=== PATIENT | female | born 1945 | race Caucasian/White ===

== ENCOUNTER 2018-11-13 01:40 | Emergency (ER) | payer MEDICARE ==
[~2018-11-13] VITALS: Ht 165.1 cm; Wt 88.5 kg
[2018-11-13] MEDS ORDERED: aspirin 81mg tab.chew PO ONE (01:55)
[2018-11-13 02:22] LABS: BASOPHILS # (AUTO) 0.1 X10'3 (0-0.2); BASOPHILS % (AUTO) 0.9 % (0-1); EOSINOPHILS # (AUTO) 0.1 X10'3 (0-0.9); EOSINOPHILS % (AUTO) 1.5 % (0-6); HEMATOCRIT 41.5 % (35.0-45.0); HEMOGLOBIN 13.8 g/dl (12.0-16.0); LYMPHOCYTES % (AUTO) 35.3 % (21-51); MEAN CORPUSCULAR HEMOGLOBIN 32.3 PG (27.0-31.0); MEAN CORPUSCULAR HGB CONC 33.3 % (33.0-36.5); MEAN CORPUSCULAR VOLUME 97.1 FL (78-98); MEAN PLATELET VOLUME 8.4 FL (7.4-10.4); MONOCYTES # (AUTO) 0.8 X10'3 (0-0.9); MONOCYTES % (AUTO) 9.2 % (2-12); NEUTROPHILS # (AUTO) 4.5 X10'3 (1.8-7.7); NEUTROPHILS % (AUTO) 53.1 % (42-75); PLATELET COUNT 330 X10'3 (140-440); RED BLOOD COUNT 4.28 X10'6 (4.20-5.60); RED CELL DISTRIBUTION WIDTH 13.4 % (11.5-14.5); WHITE BLOOD COUNT 8.5 X10'3 (4.5-11.0)
[2018-11-13 02:29] LABS: ALANINE AMINOTRANSFERASE 30 U/L (12-78); ALBUMIN 3.4 G/DL (3.4-5.0); ALBUMIN/GLOBULIN RATIO 0.8 (1.1-1.5); ALKALINE PHOSPHATASE 101 IU/L (46-116); ANION GAP 12 (8-16); ASPARTATE AMINO TRANSFERASE 24 U/L (10-37); BILIRUBIN,TOTAL 0.5 MG/DL (0.1-1.0); BLOOD UREA NITROGEN 19 MG/DL (7-18); BUN/CREATININE RATIO 18.4 (6.6-38.0); CALCIUM 8.7 MG/DL (8.5-10.1); CHLORIDE 103 MMOL/L (99-107); CREATININE 1.03 MG/DL (0.40-0.90); GLUCOSE 117 MG/DL (70-104); POTASSIUM 3.6 MMOL/L (3.5-5.1); SODIUM 140 MMOL/L (135-145); TOTAL CARBON DIOXIDE 25.1 MMOL/L (24-32); TOTAL PROTEIN 7.7 G/DL (6.4-8.2); eGFR 53 ML/MIN
[2018-11-13 05:35] VITALS: BP 138/84
== END 2018-11-13 05:37 | disposition home or self-care (01) ==
LOC: ER 01:41
DX: R00.2 Palpitations (principal); R00.0 Tachycardia, unspecified; I10 Essential (primary) hypertension; Z91.013 Allergy to seafood; Z91.018 Allergy to other foods; Z88.0 Allergy status to penicillin
CPT/HCPCS: 36415; 71045; 80053; 83735; 83880; 84484; 85025; 93005; 99284

== ENCOUNTER 2019-08-10 19:48 | Inpatient (IN) | payer MEDICARE, BC ==
[~2019-08-10] VITALS: Ht 165.1 cm; Wt 84.5 kg
[2019-08-10] MEDS ORDERED: ondansetron/PF 4mg/2ml inj IV ONE (20:00)
[2019-08-10] MEDS ORDERED: morphine 4 MG/ML inj SYRINge IV ONE (20:00)
[2019-08-10 20:25] LABS: BASOPHILS # (AUTO) 0.1 X10'3 (0-0.2); BASOPHILS % (AUTO) 0.5 % (0-1); EOSINOPHILS # (AUTO) 0.1 X10'3 (0-0.9); HEMATOCRIT 42.2 % (35.0-45.0); HEMOGLOBIN 14.3 g/dl (12.0-16.0); LYMPHOCYTES # (AUTO) 2.1 X10'3 (1.1-4.8); LYMPHOCYTES % (AUTO) 20.2 % (21-51); MEAN CORPUSCULAR HEMOGLOBIN 32.7 PG (27.0-31.0); MEAN CORPUSCULAR VOLUME 96.3 FL (78-98); MONOCYTES # (AUTO) 0.8 X10'3 (0-0.9); MONOCYTES % (AUTO) 8.2 % (2-12); NEUTROPHILS # (AUTO) 7.1 X10'3 (1.8-7.7); NEUTROPHILS % (AUTO) 70.1 % (42-75); PLATELET COUNT 292 X10'3 (140-440); RED BLOOD COUNT 4.38 X10'6 (4.20-5.60); RED CELL DISTRIBUTION WIDTH 13.7 % (11.5-14.5); WHITE BLOOD COUNT 10.2 X10'3 (4.5-11.0)
[2019-08-10 20:34] LABS: ALANINE AMINOTRANSFERASE 30 U/L (12-78); ALBUMIN 3.4 G/DL (3.4-5.0); ALBUMIN/GLOBULIN RATIO 0.8 (1.1-1.5); ALKALINE PHOSPHATASE 89 IU/L (46-116); ANION GAP 6 (8-16); ASPARTATE AMINO TRANSFERASE 23 U/L (10-37); BILIRUBIN,TOTAL 0.6 MG/DL (0.1-1.0); BLOOD UREA NITROGEN 22 MG/DL (7-18); BUN/CREATININE RATIO 22.2 (6.6-38.0); CALCIUM 8.5 MG/DL (8.5-10.1); CHLORIDE 106 MMOL/L (99-107); CREATININE 0.99 MG/DL (0.40-0.90); GLUCOSE 111 MG/DL (70-104); PARTIAL THROMBOPLASTIN TIME 26 SECONDS (22-32); POTASSIUM 4.4 MMOL/L (3.5-5.1); SODIUM 141 MMOL/L (135-145); TOTAL CARBON DIOXIDE 28.6 MMOL/L (24-32); TOTAL PROTEIN 7.6 G/DL (6.4-8.2); eGFR 55 ML/MIN
--- NOTE | 2019-08-10 20:59 | NUR ---
VERBAL ORDER FROM MD BOWENS FOR GRUBBS CATH DUE TO PATIENT HIP FX.
[2019-08-10] MEDS ORDERED: magnesium 4gm in 100ml NS 100 ML IV PRN (21:15)
[2019-08-10] MEDS ORDERED: magnesium Cl slow-release 64mg tablet PO PRN (21:15)
[2019-08-10] MEDS ORDERED: potassium Cl 20 mEq SR tablet PO PRN ×2 (21:15)
[2019-08-10] MEDS ORDERED: mag hydrox/Alum hydrox/simeth 30ml oral suspension PO PRN (21:15)
[2019-08-10] MEDS ORDERED: acetaminophen 325mg tablet PO PRN ×2 (21:15)
[2019-08-10] MEDS ORDERED: potassium CL 10mEq/100ml bag 100 ML IV PRN ×2 (21:15)
[2019-08-10] MEDS ORDERED: magnesium 2GM in 50ml NS 50 ML IV PRN (21:15)
[2019-08-10] MEDS ORDERED: SOTA80TA PO (21:24)
[2019-08-10] MEDS ORDERED: DOXY20TA3 PO (21:24)
[2019-08-10] MEDS ORDERED: CHOL10002 PO (21:24)
[2019-08-10] MEDS ORDERED: VIT1CAPS9 PO (21:24)
[2019-08-10] MEDS ORDERED: FAMO20TA8 PO (21:24)
[2019-08-10] MEDS ORDERED: LOSA25TA96 PO (21:24)
[2019-08-10] MEDS ORDERED: BIO TEARS (21:30)
[2019-08-10] MEDS: morphine 2 MG/ML inj. syringe IV PRN (21:41)
[2019-08-10] MEDS: heparin, porcine 5000 units/ml vial SQ SCH (23:36)
[2019-08-10] MEDS: normal saline 1000ml 1,000 ML IV SCH (23:37)
[2019-08-10] MEDS ORDERED: SOTA80TA73 PO ×2 (23:58)
[2019-08-11] VITALS (21 sets, daily range): BP systolic 93–138; BP diastolic 49–84
[2019-08-11] MEDS ORDERED: sotalol 80mg tablet PO ONE (00:15)
[2019-08-11 05:35] LABS: BASOPHILS % (AUTO) 0.2 % (0-1); EOSINOPHILS % (AUTO) 0.1 % (0-6); HEMATOCRIT 38.9 % (35.0-45.0); HEMOGLOBIN 12.9 g/dl (12.0-16.0); LYMPHOCYTES # (AUTO) 0.9 X10'3 (1.1-4.8); LYMPHOCYTES % (AUTO) 6.3 % (21-51); MEAN CORPUSCULAR HEMOGLOBIN 32.5 PG (27.0-31.0); MEAN CORPUSCULAR HGB CONC 33.3 g/dL (33.0-36.5); MEAN CORPUSCULAR VOLUME 97.4 FL (78-98); MEAN PLATELET VOLUME 8.3 FL (7.4-10.4); MONOCYTES # (AUTO) 0.7 X10'3 (0-0.9); MONOCYTES % (AUTO) 5.3 % (2-12); NEUTROPHILS # (AUTO) 11.9 X10'3 (1.8-7.7); NEUTROPHILS % (AUTO) 88.1 % (42-75); PLATELET COUNT 247 X10'3 (140-440); RED BLOOD COUNT 3.99 X10'6 (4.20-5.60); RED CELL DISTRIBUTION WIDTH 13.9 % (11.5-14.5); WHITE BLOOD COUNT 13.5 X10'3 (4.5-11.0)
[2019-08-11] MEDS: morphine 2 MG/ML inj. syringe IV PRN ×3 (05:52→23:19)
[2019-08-11 06:15] LABS: ALBUMIN 2.9 G/DL (3.4-5.0); ANION GAP 9 (8-16); BLOOD UREA NITROGEN 18 MG/DL (7-18); BUN/CREATININE RATIO 18.8 (6.6-38.0); CALCIUM 9.1 MG/DL (8.5-10.1); CHLORIDE 108 MMOL/L (99-107); CREATININE 0.96 MG/DL (0.40-0.90); GLUCOSE 136 MG/DL (70-104); POTASSIUM 4.2 MMOL/L (3.5-5.1); SODIUM 143 MMOL/L (135-145); TOTAL CARBON DIOXIDE 26.2 MMOL/L (24-32); eGFR 57 ML/MIN
--- NOTE | 2019-08-11 06:35 | NUR ---
Received report from Afshan RN
[2019-08-11] MEDS: normal saline 1000ml 1,000 ML IV SCH ×2 (07:13→19:46)
[2019-08-11] MEDS: sotalol 40mg tablet PO SCH (08:00)
[2019-08-11] MEDS: K and/or MAG REPLACEMENT MC SCH (08:00)
[2019-08-11] MEDS ORDERED: clindamycin 600mg/D5W 50ml 50 ML IV ONE (13:00)
[2019-08-11] MEDS ORDERED: tetracaine 1% (10mg/ml) pres. free inj. ONE (13:51)
[2019-08-11] MEDS ORDERED: midazolam 2 mg/2 ml injection ONE ×2 (13:54)
[2019-08-11] MEDS ORDERED: fentaNYL/PF 50MCG/1 ML 2ML syringe ONE (13:54)
[2019-08-11] MEDS ORDERED: propofol inj 20 ML IV ONE (13:58)
[2019-08-11] MEDS ORDERED: ePHEDrine 50MG/ML INJ. ONE (14:42)
[2019-08-11] MEDS ORDERED: ringers solution, lacted 1,000 ML IV SCH (14:47)
[2019-08-11] MEDS ORDERED: ondansetron/PF 4mg/2ml inj IV PRN (14:50)
[2019-08-11] MEDS ORDERED: morphine 4 MG/ML inj SYRINge IV PRN ×2 (14:50)
[2019-08-11] MEDS ORDERED: proCHLORperazine 10 MG/2 ml inj IV PRN (14:50)
[2019-08-11] MEDS ORDERED: meperidine/PF 25mg/ml syringe IV PRN ×3 (14:50)
--- NOTE | 2019-08-11 15:35 | NUR ---
Received from OR via ORTHO BED , accompanied by Anesthesiologist DR LEMUS and report given by Anesthesiolgist. PT PLACED ON O2 AND MONITOR, S/P RIGHT HIP HEATHER ARTHROPLASTY, SAB, PT HAS RIGHT LATERASL THIGH DRESS WITH SMALL AMOUNT OF DRAINAGE PRESENT, GOOD PEDAL PULES BILAT PT HAS FEELING TO WAIST, DENIES ANY PAIN OR NAUSEA AT THIS TIME WILL CONT TO ASSESS.
--- NOTE | 2019-08-11 17:15 | NUR ---
Report called to receiving nurse. Transferred via ORTHO BED Belongings . Special Issues communicated to receiving nurse.
--- NOTE | 2019-08-11 18:19 | NUR ---
Patient in room ORTHO 4023. I have received report from PRASHANTH WORTHINGTON and had the opportunity to ask questions and assume patient care.
[2019-08-11] MEDS: clindamycin 600mg/D5W 50ml 50 ML IV SCH (19:41)
[2019-08-11] MEDS: heparin, porcine 5000 units/ml vial SQ SCH (21:15)
[2019-08-11] MEDS: sotalol 80mg tablet PO SCH (21:18)
[2019-08-11] MEDS: HYDROcodone/acetaminophen 5mg/325mg tablet PO PRN (21:20)
[2019-08-11] MEDS: ondansetron/PF 4mg/2ml inj IV PRN (23:19)
[2019-08-12] MEDS: HYDROcodone/acetaminophen 5mg/325mg tablet PO PRN ×4 (01:31→15:08)
[2019-08-12] MEDS: clindamycin 600mg/D5W 50ml 50 ML IV SCH (01:32)
[2019-08-12 02:00] VITALS: BP 111/61
[2019-08-12 02:30] VITALS: BP 111/61
[2019-08-12] MEDS: normal saline 1000ml 1,000 ML IV SCH ×3 (03:13→16:17)
[2019-08-12] MEDS: morphine 2 MG/ML inj. syringe IV PRN (03:35)
[2019-08-12 06:00] VITALS: BP 109/58
[2019-08-12 06:40] LABS: BASOPHILS % (AUTO) 0.3 % (0-1); EOSINOPHILS % (AUTO) 0.3 % (0-6); HEMATOCRIT 36.2 % (35.0-45.0); HEMOGLOBIN 12.1 g/dl (12.0-16.0); LYMPHOCYTES # (AUTO) 0.8 X10'3 (1.1-4.8); LYMPHOCYTES % (AUTO) 6.5 % (21-51); MEAN CORPUSCULAR HEMOGLOBIN 32.8 PG (27.0-31.0); MEAN CORPUSCULAR HGB CONC 33.4 g/dL (33.0-36.5); MEAN CORPUSCULAR VOLUME 98.3 FL (78-98); MEAN PLATELET VOLUME 8.1 FL (7.4-10.4); MONOCYTES # (AUTO) 0.8 X10'3 (0-0.9); MONOCYTES % (AUTO) 7.3 % (2-12); NEUTROPHILS % (AUTO) 85.6 % (42-75); PLATELET COUNT 187 X10'3 (140-440); RED BLOOD COUNT 3.68 X10'6 (4.20-5.60); RED CELL DISTRIBUTION WIDTH 14.2 % (11.5-14.5); WHITE BLOOD COUNT 11.6 X10'3 (4.5-11.0)
[2019-08-12 06:44] LABS: ALBUMIN 2.4 G/DL (3.4-5.0); ANION GAP 7 (8-16); BLOOD UREA NITROGEN 13 MG/DL (7-18); BUN/CREATININE RATIO 14.3 (6.6-38.0); CALCIUM 8.2 MG/DL (8.5-10.1); CHLORIDE 107 MMOL/L (99-107); CREATININE 0.91 MG/DL (0.40-0.90); GLUCOSE 132 MG/DL (70-104); MAGNESIUM 1.8 MG/DL (1.5-2.4); POTASSIUM 4.2 MMOL/L (3.5-5.1); SODIUM 140 MMOL/L (135-145); TOTAL CARBON DIOXIDE 26.2 MMOL/L (24-32); eGFR 61 ML/MIN
--- NOTE | 2019-08-12 06:58 | NUR ---
Problems reprioritized. Patient report given, questions answered & plan of care reviewed with PRASHANTH GIBSON.
[2019-08-12] MEDS: K and/or MAG REPLACEMENT MC SCH (08:00)
[2019-08-12] MEDS: sotalol 40mg tablet PO SCH (09:17)
[2019-08-12] MEDS: enoxaparin 40mg/0.4ml syringe SUBCUT SCH (09:18)
[2019-08-12 10:00] VITALS: BP 115/61
[2019-08-12 18:00] VITALS: BP 116/46
[2019-08-12] MEDS: sotalol 80mg tablet PO SCH (20:18)
[2019-08-12 22:00] VITALS: BP 127/46
[2019-08-13] MEDS: normal saline 1000ml 1,000 ML IV SCH ×2 (01:15→20:21)
[2019-08-13] MEDS: HYDROcodone/acetaminophen 5mg/325mg tablet PO PRN ×3 (01:19→11:17)
[2019-08-13 06:00] VITALS: BP 133/63
--- NOTE | 2019-08-13 06:13 | NUR ---
Problems reprioritized. Patient report given, questions answered & plan of care reviewed with PRASHANTH Valdez.
[2019-08-13 07:21] LABS: BASOPHILS % (AUTO) 0.2 % (0-1); EOSINOPHILS # (AUTO) 0.1 X10'3 (0-0.9); HEMATOCRIT 33.2 % (35.0-45.0); HEMOGLOBIN 11.1 g/dl (12.0-16.0); LYMPHOCYTES # (AUTO) 1.2 X10'3 (1.1-4.8); LYMPHOCYTES % (AUTO) 9.7 % (21-51); MEAN CORPUSCULAR HEMOGLOBIN 33.1 PG (27.0-31.0); MEAN CORPUSCULAR HGB CONC 33.6 g/dL (33.0-36.5); MEAN CORPUSCULAR VOLUME 98.6 FL (78-98); MEAN PLATELET VOLUME 8.2 FL (7.4-10.4); MONOCYTES # (AUTO) 1.3 X10'3 (0-0.9); MONOCYTES % (AUTO) 11.1 % (2-12); NEUTROPHILS # (AUTO) 9.3 X10'3 (1.8-7.7); PLATELET COUNT 144 X10'3 (140-440); RED BLOOD COUNT 3.37 X10'6 (4.20-5.60); RED CELL DISTRIBUTION WIDTH 13.8 % (11.5-14.5); WHITE BLOOD COUNT 11.9 X10'3 (4.5-11.0)
[2019-08-13 07:32] LABS: ALBUMIN 2.2 G/DL (3.4-5.0); ANION GAP 7 (8-16); BLOOD UREA NITROGEN 8 MG/DL (7-18); BUN/CREATININE RATIO 10.1 (6.6-38.0); CALCIUM 7.6 MG/DL (8.5-10.1); CHLORIDE 108 MMOL/L (99-107); CREATININE 0.79 MG/DL (0.40-0.90); GLUCOSE 102 MG/DL (70-104); MAGNESIUM 1.5 MG/DL (1.5-2.4); POTASSIUM 3.8 MMOL/L (3.5-5.1); SODIUM 140 MMOL/L (135-145); eGFR 72 ML/MIN
[2019-08-13] MEDS: enoxaparin 40mg/0.4ml syringe SUBCUT SCH (08:00)
[2019-08-13] MEDS: K and/or MAG REPLACEMENT MC SCH (08:00)
[2019-08-13] MEDS: sotalol 40mg tablet PO SCH (08:53)
[2019-08-13] MEDS: magnesium hydroxide 30ml (MOM) UD suspension PO PRN (09:03)
[2019-08-13] MEDS: morphine 2 MG/ML inj. syringe IV PRN (09:04)
[2019-08-13 10:02] VITALS: BP_SYST 117; BP_SYST 93; BP_DIAS 61; BP_DIAS 63
--- NOTE | 2019-08-13 10:02 | NUR ---
unable to obtain standing orthostatics per PT Addendum: 08/13/19 at 1003 by Suzanne Poole RN Amended: Links added.
[2019-08-13 10:03] VITALS: BP 91/45
[2019-08-13] MEDS: HYDROcodone/acetaminophen 10/325mg tab PO PRN ×2 (15:03→20:23)
--- NOTE | 2019-08-13 16:26 | NUR ---
Joint replacement consult: Pt s/p R hip fx repair and seen by RD for written/verbal high protein ed w/ RD contact information provided. Pt reports chocolate/strawberry allergies but reports chocolate allergy only since she does not want any caffeine; EMR updated and dietary notified. Pt requests soft to chew foods since easier to eat more of "comfort food" and agrees to vanilla ensure pudding as well as decaf coffee TIDWM; dietary notified. PO 50-75% avg meals so far this admit. LBM 08/10 and received first bowel care post-op today; MoM. Will continue to monitor. Rec: 1. continue heart healthy diet; soft to chew foods 2. honor pt food preferences, see above; vanilla ensure pudding TIDWM 3. routine bowel care 4. wt per rx Addendum: 08/13/19 at [address] Amended: Links added.
[2019-08-13 18:00] VITALS: BP 120/63
--- NOTE | 2019-08-13 18:00 | NUR ---
Patient in room ORTHO 4023. I have received report from Courtney and had the opportunity to ask questions and assume patient care.
[2019-08-13] MEDS: sotalol 80mg tablet PO SCH (20:23)
[2019-08-13 22:00] VITALS: BP 122/73
[2019-08-14] MEDS: HYDROcodone/acetaminophen 10/325mg tab PO PRN ×3 (02:45→13:12)
[2019-08-14] MEDS: normal saline 1000ml 1,000 ML IV SCH ×2 (05:35→15:13)
--- NOTE | 2019-08-14 05:56 | NUR ---
I agree with all intervention, and assessments performed by Isidoro
[2019-08-14 06:00] VITALS: BP 111/44
[2019-08-14 06:01] LABS: BASOPHILS % (AUTO) 0.3 % (0-1); EOSINOPHILS # (AUTO) 0.2 X10'3 (0-0.9); EOSINOPHILS % (AUTO) 1.6 % (0-6); HEMATOCRIT 31.5 % (35.0-45.0); HEMOGLOBIN 10.7 g/dl (12.0-16.0); LYMPHOCYTES # (AUTO) 1.7 X10'3 (1.1-4.8); LYMPHOCYTES % (AUTO) 16.5 % (21-51); MEAN CORPUSCULAR HEMOGLOBIN 33.3 PG (27.0-31.0); MEAN CORPUSCULAR HGB CONC 33.9 g/dL (33.0-36.5); MEAN CORPUSCULAR VOLUME 98.1 FL (78-98); MEAN PLATELET VOLUME 8.3 FL (7.4-10.4); MONOCYTES # (AUTO) 1.1 X10'3 (0-0.9); MONOCYTES % (AUTO) 10.5 % (2-12); NEUTROPHILS # (AUTO) 7.5 X10'3 (1.8-7.7); NEUTROPHILS % (AUTO) 71.1 % (42-75); PLATELET COUNT 159 X10'3 (140-440); RED BLOOD COUNT 3.21 X10'6 (4.20-5.60); RED CELL DISTRIBUTION WIDTH 13.9 % (11.5-14.5); WHITE BLOOD COUNT 10.5 X10'3 (4.5-11.0)
--- NOTE | 2019-08-14 06:12 | NUR ---
Problems reprioritized. Patient report given, questions answered & plan of care reviewed with Suzanne ALFORD.
[2019-08-14 06:45] LABS: ALBUMIN 1.9 G/DL (3.4-5.0); ANION GAP 6 (8-16); BLOOD UREA NITROGEN 9 MG/DL (7-18); BUN/CREATININE RATIO 11.5 (6.6-38.0); CALCIUM 7.9 MG/DL (8.5-10.1); CHLORIDE 107 MMOL/L (99-107); CREATININE 0.78 MG/DL (0.40-0.90); GLUCOSE 102 MG/DL (70-104); MAGNESIUM 1.8 MG/DL (1.5-2.4); POTASSIUM 3.6 MMOL/L (3.5-5.1); SODIUM 140 MMOL/L (135-145); eGFR 73 ML/MIN
[2019-08-14] MEDS: enoxaparin 40mg/0.4ml syringe SUBCUT SCH (08:00)
[2019-08-14] MEDS: K and/or MAG REPLACEMENT MC SCH (08:00)
[2019-08-14] MEDS: magnesium hydroxide 30ml (MOM) UD suspension PO PRN (08:35)
[2019-08-14] MEDS: sotalol 40mg tablet PO SCH (08:37)
[2019-08-14] MEDS: ondansetron/PF 4mg/2ml inj IV PRN (10:20)
[2019-08-14 10:43] VITALS: BP 116/65
[2019-08-14] MEDS ORDERED: bisacodyl 10mg suppository rectal RC PRN (14:05)
== END 2019-08-14 15:25 | DRG 470 ==
LOC: ER 19:49 → ORTHO 4S 21:31 → CMPBEDREQ 22:50
PROVIDERS: ADMIT Hospitalist; ATTEND Internal Medicine
PROC: 0SRR0J9 Replacement of Right Hip Joint, Femoral Surface with Synthetic Substitute, Cemented, Open Approach (ICD-10-PCS; principal; 2019-08-11 13:56)
DX: S72.031A Displaced midcervical fracture of right femur, initial encounter for closed fracture (principal); D62 Acute posthemorrhagic anemia; I12.9 Hypertensive chronic kidney disease with stage 1 through stage 4 chronic kidney disease, or unspecified chronic kidney disease; W01.0XXA Fall on same level from slipping, tripping and stumbling without subsequent striking against object, initial encounter; Y93.01 Activity, walking, marching and hiking; E66.9 Obesity, unspecified; N18.3 Chronic kidney disease, stage 3 (moderate); Z68.31 Body mass index [BMI] 31.0-31.9, adult; Z79.899 Other long term (current) drug therapy; Y92.89 Other specified places as the place of occurrence of the external cause; Y99.8 Other external cause status; Z88.0 Allergy status to penicillin; Z91.013 Allergy to seafood; Z91.018 Allergy to other foods; Z91.041 Radiographic dye allergy status; Z90.49 Acquired absence of other specified parts of digestive tract; I95.9 Hypotension, unspecified
CPT/HCPCS: 36415; 71045; 73502; 80048; 80053; 83735; 84484; 85025; 85610; 85730; 86885; 86900; 86901; 87081; 93005; 96374; 96375; 97110; 97116; 97161; 97530; 99285; A6222; A6258; A6449; A6454; A7000; C1713; C1776; G0378; J1644; J1650; J2250; J2270; J2405; J2704; J3010; J3370; J3490; J7030; J7120